=== PATIENT | female | born 1970 | race Asian ===

== ENCOUNTER 2023-09-22 12:15 | Outpatient (CLI) | payer OTHER | END 2023-09-22 12:16 | disposition home or self-care (01) | LOC: CSHRAD 12:15 | PROVIDERS: ATTEND Family Medicine | DX: M54.50 Low back pain, unspecified (principal); M21.922 Unspecified acquired deformity of left upper arm; M21.921 Unspecified acquired deformity of right upper arm; M48.56XA Collapsed vertebra, not elsewhere classified, lumbar region, initial encounter for fracture; M47.816 Spondylosis without myelopathy or radiculopathy, lumbar region | CPT/HCPCS: 72100 ==